=== PATIENT | female | born 1960 | race Caucasian/White ===

== ENCOUNTER → 2023-07-06 10:05 | Outpatient (REF) | payer OTHER, SELFPAY | LOC: HWRAD 10:05 | PROVIDERS: ATTENDING PHYSICIAN Internal Medicine; FAMILY PHYSICIAN Family Medicine | DX: M81.8 Other osteoporosis without current pathological fracture (principal) | CPT/HCPCS: 77080; 77081 ==

== ENCOUNTER 2023-10-27 11:42 | Emergency (ER) | payer OTHER, SELFPAY ==
[2023-10-27 11:49] VITALS: BP 132/90
[2023-10-27 12:15] LABS: % Basophils 0.3 % (0-2); % Eosinophils 1.2 % (0-6); % Immature Granulocytes 0.3 % (0-0.5); % Lymphocytes 36.8 % (20.5-51.1); % Neutrophils 55.4 % (42.2-75.2); Absolute Eosinophils 0.1 10^3/uL (0-0.7); Absolute Lymphocytes 2.2 10^3/uL (1.2-3.4); Absolute Monocytes 0.4 10^3/uL (0.1-0.6); Absolute Neutrophils 3.3 10^3/uL (1.4-6.5); Hematocrit 40.7 % (37.0-47.0); Hemoglobin 13.7 g/dL (12.0-16.0); Mean Corp Hgb Conc. 33.7 g/dL (33.0-37.0); Mean Corpuscular Hgb 30.8 pg (27.0-31.0); Mean Corpuscular Volume 91.5 fL (81.0-99.0); Mean Platelet Volume 10.3 fL (7.4-10.4); Nucleated Red Blood Cells % 0 %; Platelet Count 214 10^3/uL (130-400); Red Blood Cell Count 4.45 10^6/uL (4.20-5.40); Red Cell Dist. Width 12.6 % (11.5-14.5)
[2023-10-27 12:27] LABS: ALT (SGPT) 25 U/L (0-35); AST (SGOT) 28 U/L (14-36); Albumin 4.5 g/dl (3.5-5.0); Alkaline Phosphatase 48 U/L (38-126); Blood Urea Nitrogen 16 mg/dl (7-17); Calcium 9.7 mg/dl (8.4-10.2); Carbon Dioxide 31 mmol/L (22-30); Chloride 102 mmol/L (98-107); Glucose 94 mg/dl (70-99); Potassium 4.2 mmol/L (3.5-5.1); Sodium 139 mmol/L (135-145); Total Protein 7.1 g/dl (6.3-8.2); eGFR > 60.00
[2023-10-27 12:39] VITALS: BP 121/70
--- NOTE | 2023-10-27 12:40 | ED.GENMED ---
History of Present Illness
General
Chief Complaint: Fainting/Passed Out
Time Seen by Provider: 10/27/23 12:22
History of Present Illness
History of Present Illness:
63-year-old female presents to the emergency department for evaluation of palpitations, dizziness and weakness that occur within 30 minutes of giving herself an injection for osteoporosis called Tymlos. She been using this for several months now,
no side effect this medication is hypercalcemia. She denies any symptoms at present. She did reportedly have a syncopal event on Wednesday. Denies any chest pain or shortness of breath
Review of Systems
Review of Systems
Allergies reviewed?: Yes
All Other Systems: ROS reviewed and negative except as documented in HPI and ROS
Phy Exam
Physical Exam
Physical Exam:
GEN: Well appearing, NAD, WDWN
HEENT: Oral mucosa moist, no scleral icterus
Cardiac: Regular rate and rhythm, no murmurs
Lung: No respiratory distress, no tachypnea, lungs clear to auscultation
MSK: No gross deformity or injuries
Skin: Good color, no pallor or jaundice, no rashes
Neuro: AO x3, moves all extremities freely
Psych: Calm, cooperative
Course
Orders/Labs/Results
Orders:
Orders
10/27/23 11:54
Electrocardiogram (*1) Urgent
Reason for Study: Syncope
EKG- Treatment ONCE
10/27/23 12:05
Complete Blood Count/With Diff Urgent
Comprehensive Metabolic Panel Urgent
Abnormal Lab Results
10/27/23
12:05
Carbon Dioxide 31 H mmol/L
(22-30)
10/27/23 12:05
10/27/23 12:05
Vital Signs
Initial and Last Documented VS:
Initial Vital Signs
Temp Pulse Resp BP Pulse Ox
98.2 F 69 18 132/90 98
10/27/23 11:49 07/17/24 11:49 10/27/23 11:49 10/27/23 11:49 10/27/23 11:49
Last Documented Vital Signs
Temp Pulse Resp BP Pulse Ox
98.2 F 77 18 123/68 98
10/27/23 11:49 10/27/23 13:00 10/27/23 13:00 10/27/23 13:00 10/27/23 13:00
MDM/Problems Addressed
MDM/Problems Addressed:
Patient's labs are reassuring, no hypercalcemia identified. No cardiac dysrhythmias noted on EKG. She is currently asymptomatic. Recommend she hold the next 3 to 5 days of Tymlos and observe for any recurrence of symptoms, any recurrence may
prompt the need for an outpatient Holter monitor
Comment
Comment:
EKG independently interpreted by me shows normal sinus rhythm at a rate of [address] changes concerning for ischemia, QTc of 388
*Critical Care Note
Total Time (30-74mins, 75-104mins- exclusive of procedures): Not Applicable
ED Attending Note
-
Portions of this chart may have been created with voice recognition software.� Occasional wrong word or��sound alike� substitutions may have occurred due to the inherent limitations of voice recognition software.
Discharge Plan
Departure
Patient Disposition: Home (Routine Discharge)
Date of Disposition: 10/27/23
Time of Disposition: 12:40
Patient with high blood pressure during this ER visit?: No
Discharge Problem:
Heart palpitations
Instructions: Syncope (Fainting) (DC)
Referrals:
Stas Toney, DO [Active] -
Activity Restrictions/Additional Instructions:
Please do not use your Tymlos for at least 3 days
If the symptoms continue despite stopping the drug, please follow up with your primary care physician OR the listed cardiology office to discuss a Holter monitor
Interventions
Interventions:
*Risk Screen - Suicide Last Done: 10/27/23 11:49
*General Assessment Last Done: 10/27/23 11:49
*Neglect/Abuse Screening Last Done: 10/27/23 11:49
ED- Fall Risk Assessment Last Done: 10/27/23 12:42
*ED COVID-19 Vaccine History Last Done: 10/27/23 12:42
*Nursing Disposition Last Done: 10/27/23 13:00
ED- Cardiac Assessment Last Done: 10/27/23 12:42
ED- Neurological Assessment Last Done: 10/27/23 12:42
Discharge Date and Time
Discharge Date/Time: 10/27/23 13:07
Print Language: VENEZUELAN
[2023-10-27 13:00] VITALS: BP 123/68
== END 2023-10-27 13:07 | disposition home or self-care (01) ==
LOC: EMR 11:42
PROVIDERS: EMERGENCY PHYSICIAN Emergency Medicine; FAMILY PHYSICIAN Internal Medicine
DX: R00.2 Palpitations (principal); R55 Syncope and collapse
CPT/HCPCS: 99284; 80053; 85025; 93005

== ENCOUNTER 2024-08-31 06:35 | Day surgery (SDC) | payer OTHER, SELFPAY | END 2024-08-31 10:53 | disposition home or self-care (01) | LOC: GI 06:35 | PROVIDERS: ATTENDING PHYSICIAN Internal Medicine | DX: Z12.11 Encounter for screening for malignant neoplasm of colon (principal); K64.9 Unspecified hemorrhoids; D12.0 Benign neoplasm of cecum; K63.5 Polyp of colon; K51.40 Inflammatory polyps of colon without complications; Z80.0 Family history of malignant neoplasm of digestive organs; Z86.0101 Personal history of adenomatous and serrated colon polyps; Z98.890 Other specified postprocedural states | CPT/HCPCS: 45388; 45381; 88305 ==

== ENCOUNTER → 2024-12-22 15:39 | Outpatient (REF) | payer OTHER, SELFPAY | LOC: RAD 15:39 | PROVIDERS: ATTENDING PHYSICIAN Family Medicine | DX: M79.671 Pain in right foot (principal) | CPT/HCPCS: 73630 ==

== ENCOUNTER → 2025-02-12 08:45 | Outpatient (REF) | payer OTHER, SELFPAY | LOC: HWRAD 08:45 | PROVIDERS: ATTENDING PHYSICIAN Internal Medicine; FAMILY PHYSICIAN Family Medicine | DX: M81.8 Other osteoporosis without current pathological fracture (principal) | CPT/HCPCS: 77080 ==